=== PATIENT | male | born 1985 | race Caucasian/White ===

== ENCOUNTER 2017-12-31 02:12 | Emergency (ER) | payer SELFPAY ==
[2017-12-31] MEDS ORDERED: Sodium Chloride 0.9% 10 ML Syringe FLUSH PRN (02:16)
[2017-12-31] MEDS ORDERED: Sodium Chloride 0.9% 1,000 ML IV ONE (02:17)
[2017-12-31] MEDS ORDERED: LORazepam 2 MG/ML SDV IVPUSH ONE (02:17)
[2017-12-31] MEDS ORDERED: Ketorolac 30 MG/ML SDV IVPUSH ONE (02:17)
[2017-12-31] MEDS ORDERED: Ondansetron 4 MG/2 ML SDV IVPUSH ONE (02:17)
[2017-12-31] MEDS ORDERED: GI Cocktail Oral Solution 30 ML PO ONE (02:22)
[2017-12-31 02:58] LABS: CHLORIDE,CL 98 mmol/L (98-107); SODIUM,NA 131 mmol/L (136-145)
[2017-12-31 02:59] LABS: ANION GAP 11.9 mmol/L (10-20)
[2017-12-31] MEDS ORDERED: Azithromycin 250 MG Tab PO ONE (03:22)
--- NOTE | 2017-12-31 03:29 | EDM.PDOC ---
ED HPI GENERAL MEDICAL PROBLEM - General Chief Complaint: Respiratory Problem Stated Complaint: DYSPNEA Time Seen by Provider: 12/31/17 02:14 Source of Information: Reports: Patient, Family, RN, RN Notes Reviewed History Limitations: Reports: No Limitations - History of Present Illness INITIAL COMMENTS - FREE TEXT/NARRATIVE: Patient presents emergency room at [facility] complaining of abdominal and epigastric pain. The patient states that it hurts to take in a deep breath. The patient states he has not felt well for quite a few days. The patient states the symptoms became much worse last evening. The patient states that his abdominal pain may be secondary to constipation as he does have some problems with this at times. The patient complains of body aches. The patient did have chills but those have resolved. The patient has felt febrile at home but has not taken his temperature. The patient denies any focal neurological deficits. The patient does say he feels short of breath when he tried to take in a deep breath. The patient denies any diarrhea. The patient feels nauseated but has not vomited. Otherwise no other concerns. Onset: Gradual Location: Reports: Chest, Abdomen Quality: Reports: Pressure Severity: Moderate Improves with: Reports: Rest Worsens with: Reports: Breathing, Movement Context: Denies: Exercise, Sick Contact, Trauma Associated Symptoms: Reports: Fever/Chills, Nausea/Vomiting Treatments BODY PRESSER: Reports: Other (see below) (None) - Related Data Allergies Allergy/AdvReac Type Severity Reaction Status Date / Time cefaclor [From [facility]] Allergy Hives Verified 12/31/17 02:15 Home Meds: Home Meds . [No Known Home Meds] 12/31/17 [History] Past Medical History - Past Health History Medical/Surgical History: Denies Medical/Surgical History Social & Family History - Tobacco Use Smoking Status *Q: Never Smoker ED ROS GENERAL - Review of Systems Review Of Systems: See Below Constitutional: Reports: Chills, Decreased Appetite. Denies: Fever, Weakness HEENT: Reports: No Symptoms Respiratory: Reports: Shortness of Breath. Denies: Cough Cardiovascular: Reports: Chest Pain. Denies: Palpitations GI/Abdominal: Reports: Abdominal Pain, Constipation, Nausea. Denies: Diarrhea, Vomiting Skin: Reports: No Symptoms Neurological: Reports: No Symptoms. Denies: Dizziness, Headache ED EXAM, GENERAL - Physical Exam Exam: See Below Exam Limited By: No Limitations General Appearance: Alert, No Apparent Distress Respiratory/Chest: No Respiratory Distress, Chest Non-Tender, Rhonchi (LLL) Cardiovascular: Normal Peripheral Pulses, Tachycardia Peripheral Pulses: 2+: Radial (L), Radial (R) GI/Abdominal: Normal Bowel Sounds, Soft, Tender (epigastric) Neurological: Alert, Oriented Skin Exam: Warm, Dry, Intact, Normal Color Course - Vital Signs Last Recorded V/S: Last Vital Signs Temp 38.1 C 12/31/17 02:17 Pulse 104 H 12/31/17 02:17 Resp 24 H 12/31/17 02:17 BP 148/72 H 12/31/17 02:17 Pulse Ox 99 12/31/17 02:17 - Orders/Labs/Meds Orders: Active Orders 24 hr Category Date Time Status EKG 12 Lead [EKG Documentation Completion] [RC] STAT Care 12/31/17 02:16 Active Abdomen 2V AP Flat Upright [CR] Stat Exams 12/31/17 02:26 Taken Chest 2V [CR] Stat Exams 12/31/17 02:16 Taken CRP [C-REACTIVE PROTEIN] [CHEM] Stat Lab 12/31/17 02:30 Received CULTURE BLOOD [BC] Stat Lab 12/31/17 03:21 Ordered CULTURE BLOOD [BC] Stat Lab 12/31/17 03:21 Ordered LACTIC ACID [CHEM] Stat Lab 12/31/17 02:30 Received MISC TEST Routine Lab 12/31/17 03:02 Received MISC TEST Stat Lab 12/31/17 03:02 Received Sodium Chloride 0.9% [Saline Flush] Med 12/31/17 02:16 Active 10 ml FLUSH ASDIRECTED PRN Blood Culture x2 Reflex Set [OM.PC] Stat Oth 12/31/17 03:21 Ordered Peripheral IV Insertion Adult [OM.PC] Routine Oth 12/31/17 02:16 Ordered Medication Orders Sodium Chloride (Saline Flush) 10 ml FLUSH ASDIRECTED PRN PRN Reason: Keep Vein Open Labs: Laboratory Tests 12/31/17 12/31/17 12/31/17 Range/Units 02:30 02:30 02:34 WBC 17.7 H (4.0-10.0) x10^3/uL RBC 4.53 (4.5-6.0) x10^6/uL Hgb 13.4 L (14.0-18.0) g/dL Hct 38.5 L (40.0-52.0) % MCV 85.0 (78.0-93.0) fL MCH 29.6 (26.0-32.0) pg MCHC 34.8 (32.0-36.0) g/dL RDW Coeff of Jb 12.4 (10.0-15.0) % Plt Count 301 (130-400) x10^3/uL Neut % (Auto) 79.2 (50.0-80.0) % Lymph % (Auto) 8.5 L (25.0-50.0) % [place] % (Auto) 11.9 H (2.0-11.0) % Eos % (Auto) 0.2 (0.0-4.0) % Baso % (Auto) 0.2 (0.2-1.2) % Sodium 131 L (136-145) mmol/L Potassium 3.9 (3.5-5.1) mmol/L Chloride 98 (98-107) mmol/L Carbon Dioxide 25 (21-32) mmol/L Anion Gap 11.9 (10-20) mmol/L BUN 12 (7-18) mg/dL Creatinine 1.0 (0.70-1.30) mg/dL Est Cr Clr Drug Dosing TNP Estimated GFR (MDRD) > 60 Glucose 107 H (74-106) mg/dL Calcium 9.0 (8.5-10.1) mg/dL Corrected Calcium 9.64 (8.5-10.1) mg/dL Total Bilirubin 1.8 H (0.2-1.0) mg/dL AST 82 H (15-37) U/L ALT 93 H (16-63) U/L Alkaline Phosphatase 152 H (46-116) U/L Creatine Kinase 260 (39-308) U/L POC Troponin I 0.00 (0.00-0.08) ng/mL Total Protein 7.5 (6.4-8.2) g/dL Albumin 3.2 L (3.4-5.0) g/dL Globulin 4.3 Albumin/Globulin Ratio 0.74 Amylase 27 (25-115) U/L Lipase 91 (73-393) U/L Urine Color (YELLOW) Urine Appearance (CLEAR) Urine pH (5.0-8.0) Ur Specific [place] Urine Protein (NEGATIVE) mg/dL Urine Glucose (UA) (NEGATIVE) mg/dL Urine Ketones (NEGATIVE) mg/dL Urine Occult Blood (NEGATIVE) Urine Nitrite (NEGATIVE) Urine Bilirubin (NEGATIVE) Urine Urobilinogen (0.2) EU/dL Ur Leukocyte Esterase (NEGATIVE) Urine RBC (NOT SEEN) /HPF Urine WBC (NOT SEEN) /HPF Ur Squamous Epith Cells (NEGATIVE) /HPF Urine Bacteria (NEGATIVE) /HPF Urine Mucus (NEGATIVE) /LPF Urine Opiates Screen (NEAGTIVE) Ur Buprenorphine Scrn (NEGATIVE) Ur Oxycodone Screen (NEGATIVE) Urine Methadone Screen (NEGATIVE) Ur Barbiturates Screen (NEGATIVE) Ur Tricyclics Screen (NEGATIVE) Ur Amphetamine Screen (NEGATIVE) U Methamphetamines Scrn (NEGATIVE) Urine MDMA Screen (NEGATIVE) U Benzodiazepines Scrn (NEGATIVE) U Cocaine Metab Screen (NEGATIVE) U Marijuana (THC) Screen (NEGATIVE) 12/31/17 12/31/17 Range/Units 03:02 03:02 WBC (4.0-10.0) x10^3/uL RBC (4.5-6.0) x10^6/uL Hgb (14.0-18.0) g/dL Hct (40.0-52.0) % MCV (78.0-93.0) fL MCH (26.0-32.0) pg MCHC (32.0-36.0) g/dL RDW Coeff of Jb (10.0-15.0) % Plt Count (130-400) x10^3/uL Neut % (Auto) (50.0-80.0) % Lymph % (Auto) (25.0-50.0) % Blaine % (Auto) (2.0-11.0) % Eos % (Auto) (0.0-4.0) % Baso % (Auto) (0.2-1.2) % Sodium (136-145) mmol/L Potassium (3.5-5.1) mmol/L Chloride (98-107) mmol/L Carbon Dioxide (21-32) mmol/L Anion Gap (10-20) mmol/L BUN (7-18) mg/dL Creatinine (0.70-1.30) mg/dL Est Cr Clr Drug Dosing Estimated GFR (MDRD) Glucose (74-106) mg/dL Calcium (8.5-10.1) mg/dL Corrected Calcium (8.5-10.1) mg/dL Total Bilirubin (0.2-1.0) mg/dL AST (15-37) U/L ALT (16-63) U/L Alkaline Phosphatase (46-116) U/L Creatine Kinase (39-308) U/L POC Troponin I (0.00-0.08) ng/mL Total Protein (6.4-8.2) g/dL Albumin (3.4-5.0) g/dL Globulin Albumin/Globulin Ratio Amylase (25-115) U/L Lipase (73-393) U/L Urine Color Dark yellow H (YELLOW) Urine Appearance Clear (CLEAR) Urine pH 7.5 (5.0-8.0) Ur Specific [place] 1.015 Urine Protein 30 H (NEGATIVE) mg/dL Urine Glucose (UA) Negative (NEGATIVE) mg/dL Urine Ketones 80 H (NEGATIVE) mg/dL Urine Occult Blood Negative (NEGATIVE) Urine Nitrite Negative (NEGATIVE) Urine Bilirubin Small H (NEGATIVE) Urine Urobilinogen 4.0 H (0.2) EU/dL Ur Leukocyte Esterase Negative (NEGATIVE) Urine RBC 0-5 (NOT SEEN) /HPF Urine WBC 0-5 (NOT SEEN) /HPF Ur Squamous Epith Cells Not seen (NEGATIVE) /HPF Urine Bacteria Not seen (NEGATIVE) /HPF Urine Mucus Not seen (NEGATIVE) /LPF Urine Opiates Screen Negative (NEAGTIVE) Ur Buprenorphine Scrn Negative (NEGATIVE) Ur Oxycodone Screen Negative (NEGATIVE) Urine Methadone Screen Negative (NEGATIVE) Ur Barbiturates Screen Negative (NEGATIVE) Ur Tricyclics Screen Negative (NEGATIVE) Ur Amphetamine Screen Positive H (NEGATIVE) U Methamphetamines Scrn Positive H (NEGATIVE) Urine MDMA Screen Negative (NEGATIVE) U Benzodiazepines Scrn Negative (NEGATIVE) U Cocaine Metab Screen Negative (NEGATIVE) U Marijuana (THC) Screen Positive H (NEGATIVE) Meds: Medications Generic Name Dose Route Start Last Admin Trade Name Freq PRN Reason Stop Dose Admin Sodium Chloride 10 ml 12/31/17 02:16 Saline Flush FLUSH ASDIRECTED PRN Keep Vein Open Discontinued Medications Generic Name Dose Route Start Last Admin Trade Name Freq PRN Reason Stop Dose Admin Al Hydroxide/Mg Hydroxide 30 ml 12/31/17 02:22 12/31/17 02:38 Gi Cocktail PO 12/31/17 02:23 30 ml ONETIME ONE Administration Azithromycin 500 mg 12/31/17 03:22 12/31/17 03:37 Zithromax PO 12/31/17 03:23 500 mg ONETIME ONE Administration Sodium Chloride 1,000 mls @ 999 mls/hr 12/31/17 02:17 12/31/17 02:35 Normal Saline IV 12/31/17 03:17 999 mls/hr ONETIME ONE Administration Ketorolac Tromethamine 30 mg 12/31/17 02:17 12/31/17 02:41 Toradol IVPUSH 12/31/17 02:18 30 mg ONETIME ONE Administration Lorazepam 1 mg 12/31/17 02:17 12/31/17 02:43 Ativan IVPUSH 12/31/17 02:18 1 mg ONETIME ONE Administration Ondansetron HCl 4 mg 12/31/17 02:17 12/31/17 02:41 Zofran IVPUSH 12/31/17 02:18 4 mg ONETIME ONE Administration - Radiology Interpretation Free Text/Narrative:: CXR: LLL Pneumonia Abd 2V: No bowel obstruction; There is consolidation in the left lung base consistent with pneumonia See scanned reports in EMR Departure - Departure Time of Disposition: 03:29 Disposition: Home, Self-Care 01 Condition: Good Clinical Impression: Community acquired pneumonia Qualifiers: Laterality: left Lung location: lower lobe of lung Qualified Code(s): J18.1 - Lobar pneumonia, unspecified organism - Discharge Information *PRESCRIPTION DRUG MONITORING PROGRAM REVIEWED*: Not Applicable *COPY OF PRESCRIPTION DRUG MONITORING REPORT IN PATIENT STEPAN: Not Applicable Instructions: Azithromycin tablets, Community-Acquired Pneumonia, Adult Referrals: Bala Grigsby NP [Emergency Provider] - 01/03/18 (Follow up with me in clinic on January 03 for a recheck and repeat chest xray) Forms: ED Department Discharge Additional Instructions: 1. Stay well hydrated and rest 2. LOTS of water, avoid soda 3. Cough and deep breath several times an hour 4. Take antibiotics for the full coarse, even if you are feeling better 5. See me at the [facility] on WednesdayJanuary 03 for a repeat chest xray and recheck 6. Call [phone] to schedule the appointment - Problem List Review Problem List Initiated/Reviewed/Updated: Yes - My Orders Last 24 Hours: My Active Orders 12/31/17 02:16 EKG 12 Lead [EKG Documentation Completion] [RC] STAT Chest 2V [CR] Stat Sodium Chloride 0.9% [Saline Flush] 10 ml FLUSH ASDIRECTED PRN Peripheral IV Insertion Adult [OM.PC] Routine 12/31/17 02:26 Abdomen 2V AP Flat Upright [CR] Stat 12/31/17 02:30 CRP [C-REACTIVE PROTEIN] [CHEM] Stat LACTIC ACID [CHEM] Stat 12/31/17 03:02 MISC TEST Routine MISC TEST Stat 12/31/17 03:21 CULTURE BLOOD [BC] Stat CULTURE BLOOD [BC] Stat Blood Culture x2 Reflex Set [OM.PC] Stat - Assessment/Plan Last 24 Hours: My Active Orders 12/31/17 02:16 EKG 12 Lead [EKG Documentation Completion] [RC] STAT Chest 2V [CR] Stat Sodium Chloride 0.9% [Saline Flush] 10 ml FLUSH ASDIRECTED PRN Peripheral IV Insertion Adult [OM.PC] Routine 12/31/17 02:26 Abdomen 2V AP Flat Upright [CR] Stat 12/31/17 02:30 CRP [C-REACTIVE PROTEIN] [CHEM] Stat LACTIC ACID [CHEM] Stat 12/31/17 03:02 MISC TEST Routine MISC TEST Stat 12/31/17 03:21 CULTURE BLOOD [BC] Stat CULTURE BLOOD [BC] Stat Blood Culture x2 Reflex Set [OM.PC] Stat Assessment:: Community Acquired Pneumonia Plan: Labs and xray discussed with patient. CAP. Will treat as outpatient given no comorbid conditions and abx resistance unlikely. Start ZPak. First dose in ER.
== END 2017-12-31 03:50 | disposition home or self-care (01) ==
LOC: VM.ED 02:12
DX: J18.9 Pneumonia, unspecified organism (principal); Z88.1 Allergy status to other antibiotic agents
CPT/HCPCS: 36415; 71046; 74019; 80053; 80305-QW; 81001; 82150; 82550; 83605; 83690; 84484; 85025; 86140; 87040; 93005; 96361; 96374; 96375; 99285; A9270-GY; J1885; J2060; J2405; J7030